=== PATIENT | female | born 2000 | race American Indian/Alaskan Native ===

== ENCOUNTER 2021-05-09 22:18 | Emergency (ER) | payer BC ==
[2021-05-10 00:13] LABS: Hematocrit 37.8 % (30.3-42.9); Hemoglobin 13.1 gm/dl (10.1-14.3); Mean Corpuscular HGB Conc 35 % (30-34); Mean Corpuscular Volume 90 fl (79-97); Platelet Count 184 K/mm3 (140-440); Red Blood Count 4.21 M/mm3 (3.65-5.03); Red Cell Distribution Width 12.6 % (13.2-15.2)
[2021-05-10 00:19] LABS: Alanine Aminotransferase 8 units/L (7-56); Albumin 5.2 g/dL (3.9-5); Blood Urea Nitrogen 9 mg/dL (7-17); Calcium 9.8 mg/dL (8.4-10.2); Hemolysis Index 1
[2021-05-10 00:24] LABS: BUN/Creatinine Ratio 23
[2021-05-10 01:29] LABS: Anisocytosis 1+; Platelet Estimate Consistent w Auto; Total Cells Counted 100
[2021-05-10 02:00] LABS: Bacteria,Urine 1+ /HPF (Negative); Bilirubin,Urine NEG (Negative); Blood,Urine MOD (Negative); Color,Urine Yellow (Yellow); Mucus,Urine 3+ /HPF; Urobilinogen,Urine < 2.0 mg/dL (<2.0)
[2021-05-10] MEDS ORDERED: ONDANSETRON 4 MG/2 ML INJ IV ONE (02:23)
[2021-05-10] MEDS ORDERED: DICYCLOMINE 20 MG/2 ML INJ IM ONE (02:23)
[2021-05-10] MEDS ORDERED: SODIUM CHLORIDE 0.9% 1000 ML 1,000 ML IV ONE (02:23)
[2021-05-10] MEDS ORDERED: FAMOTIDINE 20 MG/2 ML INJ IV ONE (02:24)
[2021-05-10] MEDS ORDERED: MORPHINE 4 MG/1 ML INJ IV ONE (03:57)
[2021-05-10] MEDS ORDERED: diphenhydrAMINE 25 MG CAP PO ONE (03:57)
[2021-05-10] MEDS ORDERED: METOCLOPRAMIDE 10 MG/2 ML INJ IV ONE (03:57)
[2021-05-10] MEDS ORDERED: POTASSIUM CHLORIDE ER 20 MEQ TAB PO ONE (04:00)
--- NOTE | 2021-05-10 07:28 | Emergency Department Report ---
HPI - General Chief Complaint: Abdominal Pain Time Seen by Provider: 05/10/21 03:48 - HPI HPI: 21-year-old female with history of gastroparesis presents complaining of an episode of gastroparesis. She says that she recently moved from [place] and does not have a hot plate press operator here. She says that for the past 12 hours she has had intractable nausea and vomiting and epigastric pain. She says that this is very typical of her gastroparesis episodes and that they can be set off by anything. She says today she started her period and had some abdominal cramps which apparently activated one of her episodes. She says this feels exactly like her prior episodes. She says she has undergone multiple CT scans and work-ups and that nothing abnormal has ever been found. She says that she knows that what makes her feel better is IV fluids, Reglan, and morphine for her pain. She denies any other associated symptoms or complaints. ED Past Medical Hx - Past Medical History Previous Medical History?: Yes Additional medical history: gastroparesis - Surgical History Past Surgical History?: No ED Review of Systems ROS: Stated complaint: NAUSEA/EMESIS/ABD PAIN Other details as noted in HPI Constitutional: denies: chills, fever Eyes: denies: eye pain, vision change ENT: denies: throat pain, congestion Respiratory: denies: cough, shortness of breath Cardiovascular: denies: chest pain, palpitations Gastrointestinal: abdominal pain, nausea, vomiting. denies: diarrhea Genitourinary: denies: dysuria, frequency Musculoskeletal: denies: back pain Skin: denies: rash Neurological: denies: headache, weakness, numbness Physical Exam - Physical Exam Vital Signs: Vital Signs 05/09/21 05/10/21 22:55 06:33 Temperature 98.2 F 99.1 F Pulse Rate 80 99 H Respiratory 18 16 Rate Blood Pressure 114/68 Blood Pressure 145/94 [Left] O2 Sat by Pulse 99 100 Oximetry Physical Exam: GENERAL: Well developed and well nourished. No acute distress HEENT: Normocephalic. No obvious signs of trauma. Slightly dry mucous membranes. EYES: Extraocular movements are intact. Pupils are equal round and reactive to light bilaterally NECK: Supple. Trachea is midline. LUNGS: Nonlabored breathing. Equal chest rise bilaterally. Clear to auscultation bilaterally. HEART/CARDIOVASCULAR: Regular rate and rhythm. No murmurs or rubs. VASCULAR: 2+ peripheral pulses. Cap refill < 2 seconds ABDOMEN: Abdomen is soft and nondistended. There is mild tenderness noted to the epigastrium. Otherwise there is no significant tenderness guarding or rebound. SKIN: Skin is warm and dry NEURO: Patient is awake, alert, and oriented. excellence coach II-XII grossly intact. No focal deficits. Normal motor and sensory exam throughout. Normal speech. Normal gait. MUSCULOSKELETAL: No obvious deformities. No significant tenderness. Normal ROM throughout. BACK/SPINE: No costovertebral angle tenderness. ED Course Vital Signs 05/09/21 05/10/21 22:55 06:33 Temperature 98.2 F 99.1 F Pulse Rate 80 99 H Respiratory 18 16 Rate Blood Pressure 114/68 Blood Pressure 145/94 [Left] O2 Sat by Pulse 99 100 Oximetry ED Medical Decision Making - Lab Data Result diagrams: 05/09/21 23:02 05/09/21 23:02 Labs 05/09/21 05/09/21 05/09/21 23:02 23:02 Unknown WBC 14.4 H RBC 4.21 Hgb 13.1 Hct 37.8 MCV 90 MCH 31 MCHC 35 H RDW 12.6 L Plt Count 184 Add Manual Diff Complete Total Counted 100 Seg Neutrophils % Matrix Bath Attendant Seg Neuts % (Manual) 96.0 H Lymphocytes % (Manual) 1.0 L Monocytes % (Manual) 3.0 Nucleated RBC % Not Reportable Seg Neutrophils # Man 13.8 H Band Neutrophils # 0.0 Lymphocytes # (Manual) 0.1 L Abs React Lymphs (Man) 0.0 Monocytes # (Manual) 0.4 Eosinophils # (Manual) 0.0 Basophils # (Manual) 0.0 Metamyelocytes # 0.0 Myelocytes # 0.0 Promyelocytes # 0.0 Blast Cells # 0.0 WBC Morphology Not Reportable Hypersegmented Neuts Not Reportable Hyposegmented Neuts Not Reportable Hypogranular Neuts Not Reportable Smudge Cells Not Reportable Toxic Granulation Not Reportable Toxic Vacuolation Not Reportable Dohle Bodies Not Reportable Pelger-Huet Anomaly Not Reportable Jennifer Rods Not Reportable Platelet Estimate Consistent w auto Clumped Platelets Not Reportable Plt Clumps, EDTA Not Reportable Large Platelets Not Reportable Giant Platelets Not Reportable Platelet Satelliting Not Reportable Plt Morphology Comment Not Reportable RBC Morphology Not Reportable Dimorphic RBCs Not Reportable Polychromasia Not Reportable Hypochromasia Not Reportable Poikilocytosis Not Reportable Anisocytosis 1+ Microcytosis Not Reportable Macrocytosis Not Reportable Spherocytes Not Reportable Pappenheimer Bodies Not Reportable Sickle Cells Not Reportable Target Cells Not Reportable Tear Drop Cells Not Reportable Ovalocytes Not Reportable Helmet Cells Not Reportable [place] Bodies Not Reportable Central Rings Not Reportable [place] Cells Not Reportable Bite Cells Not Reportable Crenated Cell Not Reportable Elliptocytes Not Reportable Acanthocytes (Spur) Not Reportable Rouleaux Not Reportable Hemoglobin C Crystals Not Reportable Schistocytes Not Reportable Malaria parasites Not Reportable Maycol Bodies Not Reportable Hem Pathologist Commnt No Sodium 139 Potassium 3.5 L Chloride 101.6 Carbon Dioxide 20 L Anion Gap 21 BUN 9 Creatinine 0.4 L Estimated GFR > 60 BUN/Creatinine Ratio 23 Glucose 136 H Calcium 9.8 Magnesium Total Bilirubin 0.60 AST 15 ALT 8 Alkaline Phosphatase 68 Total Protein 7.7 Albumin 5.2 H Albumin/Globulin Ratio 2.1 HCG, Qual Urine Color Yellow Urine Turbidity Clear Urine pH 5.0 Ur Specific [place] 1.030 Urine Protein 30 mg/dl Urine Glucose (UA) 50 Urine Ketones 80 Urine Blood Mod Urine Nitrite Neg Urine Bilirubin Neg Urine Urobilinogen < 2.0 Ur Leukocyte Esterase Neg Urine WBC (Auto) 3.0 Urine RBC (Auto) 123.0 U Epithel Cells (Auto) 1.0 Urine Bacteria (Auto) 1+ Urine Mucus 3+ 05/10/21 05/10/21 04:35 04:35 WBC RBC Hgb Hct MCV MCH MCHC RDW Plt Count Add Manual Diff Total Counted Seg Neutrophils % Seg Neuts % (Manual) Lymphocytes % (Manual) Monocytes % (Manual) Nucleated RBC % Seg Neutrophils # Man Band Neutrophils # Lymphocytes # (Manual) Abs React Lymphs (Man) Monocytes # (Manual) Eosinophils # (Manual) Basophils # (Manual) Metamyelocytes # Myelocytes # Promyelocytes # Blast Cells # WBC Morphology Hypersegmented Neuts Hyposegmented Neuts Hypogranular Neuts Smudge Cells Toxic Granulation Toxic Vacuolation Dohle Bodies Pelger-Huet Anomaly Jennifer Rods Platelet Estimate Clumped Platelets Plt Clumps, EDTA Large Platelets Giant Platelets Platelet Satelliting Plt Morphology Comment RBC Morphology Dimorphic RBCs Polychromasia Hypochromasia Poikilocytosis Anisocytosis Microcytosis Macrocytosis Spherocytes Pappenheimer Bodies Sickle Cells Target Cells Tear Drop Cells Ovalocytes Helmet Cells Mal[place] Bodies Central Rings Mele Cells Bite Cells Crenated Cell Elliptocytes Acanthocytes (Spur) Rouleaux Hemoglobin C Crystals Schistocytes Malaria parasites Maycol Bodies Hem Pathologist Commnt Sodium Potassium Chloride Carbon Dioxide Anion Gap BUN Creatinine Estimated GFR BUN/Creatinine Ratio Glucose Calcium Magnesium 1.60 L Total Bilirubin AST ALT Alkaline Phosphatase Total Protein Albumin Albumin/Globulin Ratio HCG, Qual Negative Urine Color Urine Turbidity Urine pH Ur Specific [place] Urine Protein Urine Glucose (UA) Urine Ketones Urine Blood Urine Nitrite Urine Bilirubin Urine Urobilinogen Ur Leukocyte Esterase Urine WBC (Auto) Urine RBC (Auto) U Epithel Cells (Auto) Urine Bacteria (Auto) Urine Mucus - Medical Decision Making 21-year-old female with history of gastroparesis presents complaining of new episode of her gastroparesis. She states that today she started her period and started having pelvic/abdominal cramps which resulted in her having epigastric pain and intractable nausea and vomiting for the past 12 hours. She says this is typical of her gastroparesis episodes. The patient had labs drawn in triage and have resulted revealing leukocytosis of 14.4 without significant anemia. Kidney function is normal and there is mild hypokalemia with potassium of 3.5. On exam, the patient has dry mucous membranes. She has minimal epigastric tenderness in the remainder of her physical exam is within normal limits. The patient states that she knows what she is experiencing is one of her gastroparesis episodes. I offered her a pelvic exam to assess for evidence of adnexal tenderness. I also offered her CT of the abdomen given her epigastric tenderness. She declined saying that she knows will make her feel better is Reglan and morphine. I have ordered 1 L of IV fluids, Reglan, Benadryl, and morphine. She is also been given Bentyl in triage. We will replete her potassium. On repeat assessment at 5:30 AM, she reports that she is dramatically improved. She no longer has any symptoms. I offered her a prescription for Reglan but she says she will follow-up. I will give her referral to hot plate press operator. Patient expressed understanding agreement with this plan. Critical care attestation.: If time is entered above; I have spent that time in minutes in the direct care of this critically ill patient, excluding procedure time. ED Disposition Clinical Impression: Gastroparesis Disposition: DC-01 TO HOME OR SELFCARE Is pt being admited?: No Condition: Stable Instructions: Gastroparesis, Abdominal Pain (ED) Referrals: [facility] [Provider Group] - 3-5 Days
[2021-05-10 07:34] VITALS: BP 100/55
== END 2021-05-10 07:34 | disposition home or self-care (01) ==
LOC: ED 22:18
DX: K31.84 Gastroparesis (principal); Z98.890 Other specified postprocedural states; Z79.899 Other long term (current) drug therapy
CPT/HCPCS: 36415; 80053; 81001; 83735; 84703; 85007; 85025; 96361; 96372; 96374; 96375; 99283; J0500; J2270; J2405; J2765; J7030